=== PATIENT | female | born 1985 | race Caucasian/White ===

== ENCOUNTER 2018-09-17 19:59 | Emergency (ER) | payer OTHER ==
[2018-09-17] MEDS ORDERED: diPHENhydraMINE IV* 50 MG/ML 1 ml VIAL (BENADRYL) IV ONE (20:26)
[2018-09-17] MEDS ORDERED: Metoclopramide IV* 5 MG/ML 2 ML VIAL IV ONE (20:26)
[2018-09-17] MEDS ORDERED: Ketorolac INJ* 30 MG/ML 1 ML VIAL IV PUSH ONE (20:26)
--- NOTE | 2018-09-17 20:26 | UC ---
Headache HPI - HPI Summary HPI Summary: 33yo F with hx of only minor headaches in the past presents with R parietal headache that began this morning. Headache came on gradually and was sharp/ throbbing and intermittent. At times she felt her hair in the area was sensitive and has also experienced photophobia. Denies phonophobia, blurred vision, fever or neck pain. Denies any injury to area. No nausea/vomiting. + FHx of migraines in mother. LMP 1wk ago. - History Of Current Complaint Chief Complaint: UCHeadache Stated Complaint: HEADACHE Time Seen by Provider: 09/17/18 20:14 Hx Obtained From: Patient Hx Last Menstrual Period: 1 wk ago Pain Intensity: 6 - Allergies/Home Medications Allergies/Adverse Reactions: Allergies Allergy/AdvReac Type Severity Reaction Status Date / Time No Known Allergies Allergy Verified 09/17/18 20:18 Home Medications: Home Medications Ascorbic Acid TAB* [Vitamin C TAB*] 1 tab PO DAILY 09/17/18 [History Confirmed 09/17/18] Citalopram TAB* [Celexa TAB*] 1 tab PO DAILY 09/17/18 [History Confirmed ] Multivitamin [Multivitamins] 1 tab PO DAILY 09/17/18 [History Confirmed 09/17/18 ] PMH/Surg Hx/FS Hx/Imm Hx Previously Healthy: Yes - depression only - Surgical History Surgical History: Yes Surgery Procedure, Year, and Place: Appy. Left wrist - Family History Known Family History: Positive: Other - migraines in mother - Social History Alcohol Use: None Substance Use Type: None Smoking Status (MU): Never Smoked Tobacco Review of Systems Constitutional: Negative Skin: Negative Eyes: Negative ENT: Negative Gastrointestinal: Negative Motor: Negative Neurological: Headache All Other Systems Reviewed And Are Negative: Yes Physical Exam Triage Information Reviewed: Yes Appearance: Well-Appearing, No Pain Distress, Well-Nourished Vital Signs: Initial Vital Signs Temp 97.5 F 09/17/18 20:15 Pulse 73 09/17/18 20:15 Resp 18 09/17/18 20:15 BP 138/92 09/17/18 20:15 Pulse Ox 98 09/17/18 20:15 Vital Signs Reviewed: Yes Eyes: Positive: Conjunctiva Clear, Other: - Globes soft, TA non-tender ENT: Positive: Normal ENT inspection Neck: Positive: Supple, Nontender, No Lymphadenopathy. Negative: Nuchal Rigidity Respiratory: Positive: Lungs clear Cardiovascular: Positive: RRR Musculoskeletal: Positive: Strength Intact, ROM Intact Neurological: Positive: Alert, Other: - CN intact. Nl gait Skin Exam: Normal Re-Evaluation - Re-Evaluation First Eval Re-Evaluation Time: 21:00 Change: Improved Headache Course/Dx - Course Course Of Treatment: pt with gradual onset headache. 1 sided, throbbing with Fhx for migraines. Treated here with full relief. No high risk features. F/U with [facility]. - Differential Dx/Diagnosis Differential Diagnosis/HQI/PQRI: Meningitis, Migraine, Sinus Headache, Subarachnoid Hemorrhage, Tension Headache Provider Diagnoses: Acute migraine headache Discharge - Sign-Out/Discharge Documenting (check all that apply): Patient Departure All imaging exams completed and their final reports reviewed: No Studies - Discharge Plan Condition: Improved Disposition: HOME Prescriptions: Promethazine TAB* [Phenergan Tab*] 25 mg PO Q6H PRN #20 tab PRN Reason: headache/nausea Patient Education Materials: Acute Headache (ED) Referrals: [facility] [Outside] [facility] [Outside] Additional Instructions: Call tomorrow to follow up with the [facility]. A primary care doctor referral hotline has been given to you. If you get headaches, prescribed medication can help -- it can cause drowsiness so do not drive. If more sever, take ibuprofen, benadryl, water and caffeine. Return if worse, fevers, severe headache, new symptoms or other concerns. - Billing Disposition and Condition Condition: IMPROVED Disposition: Home - Attestation Statements Document Initiated by Jarad: No
[2018-09-17] MEDS ORDERED: NS 0.9% 1000 ML* 1,000 ML IV ONE (21:01)
[2018-09-17 21:10] VITALS: BP 130/80
== END 2018-09-17 21:20 | disposition home or self-care (01) ==
LOC: UCEAST 19:59
DX: G43.909 Migraine, unspecified, not intractable, without status migrainosus (principal)
CPT/HCPCS: 96360; 96374; 96375; 99202; G0463; J1200; J1885; J2765

== ENCOUNTER 2018-11-19 17:52 | Emergency (ER) | payer OTHER ==
[2018-11-19 18:01] VITALS: BP 129/83
--- NOTE | 2018-11-19 18:37 | UC ---
Lower Extremity/Ankle HPI - HPI Summary HPI Summary: The patient is a 33-year-old female that has had left heel pain for approximately 6 weeks. She denies any known trauma. Been no days that she's been completely pain-free. Some days or worsen others. Her symptoms seem to be worse first thing in the morning and when she returns from work. She has been taking 400 mg of ibuprofen twice a day. - History of Current Complaint Chief Complaint: UCLowerExtremity Stated Complaint: L FOOT PAIN Time Seen by Provider: 11/19/18 18:21 Hx Obtained From: Patient Hx Last Menstrual Period: 10/31/18 Onset/Duration: Gradual Onset, Lasting Weeks Severity Initially: Mild Severity Currently: Moderate Pain Intensity: 5 Pain Scale Used: 0-10 Numeric Aggravating Factor(s): Standing, Ambulation Alleviating Factor(s): Rest Able to Bear Weight: Yes Feet (Multiple View): 1 - tender - Allergies/Home Medications Allergies/Adverse Reactions: Allergies Allergy/AdvReac Type Severity Reaction Status Date / Time No Known Allergies Allergy Verified 11/19/18 18:01 Home Medications: Home Medications Escitalopram (NF) [Lexapro 20 mg (NF)] 20 mg PO DAILY 11/19/18 [History Confirmed 11/19/18] PMH/Surg Hx/FS Hx/Imm Hx Previously Healthy: Yes Psychological History: Anxiety - Surgical History Surgical History: Yes Surgery Procedure, Year, and Place: Appy. Left wrist - Family History Known Family History: Positive: Hypertension, Other - migraines in mother - Social History Alcohol Use: Occasionally Substance Use Type: None Smoking Status (MU): Never Smoked Tobacco Review of Systems All Other Systems Reviewed And Are Negative: Yes Constitutional: Positive: Negative Skin: Positive: Negative Eyes: Positive: Negative ENT: Positive: Negative Respiratory: Positive: Negative Cardiovascular: Positive: Negative Gastrointestinal: Positive: Negative Genitourinary: Positive: Negative Motor: Positive: Negative Neurovascular: Positive: Negative Musculoskeletal: Positive: Arthralgia Neurological: Positive: Negative Psychological: Positive: Negative Physical Exam Triage Information Reviewed: Yes Appearance: Well-Appearing, No Pain Distress, Well-Nourished Vital Signs: Initial Vital Signs Temp 98.0 F 11/19/18 17:56 Pulse 88 11/19/18 17:56 Resp 18 11/19/18 17:56 BP 129/83 11/19/18 17:56 Pulse Ox 100 11/19/18 17:56 Eyes: Positive: Conjunctiva Clear ENT: Positive: Hearing grossly normal. Negative: Nasal congestion, Nasal drainage, Trismus, Muffled voice, Hoarse voice Neck: Positive: Supple Respiratory: Positive: Lungs clear, Normal breath sounds, No respiratory distress, No accessory muscle use Cardiovascular: Positive: RRR, No Murmur Neurological: Positive: Alert Psychological Exam: Normal Skin Exam: Normal Diagnostics - Radiology No standard instances Radiology Interpretation Completed By: ED Physician Summary of Radiographic Findings: calcaneal spur Lower Extremity Course/Dx - Differential Dx/Diagnosis Provider Diagnosis: Plantar fasciitis of left foot, Heel spur Discharge - Sign-Out/Discharge Documenting (check all that apply): Patient Departure All imaging exams completed and their final reports reviewed: No - Discharge Plan Condition: Stable Disposition: HOME Patient Education Materials: Plantar Fasciitis (ED), Plantar Fasciitis Exercises (GEN) - Billing Disposition and Condition Condition: STABLE Disposition: Home
--- NOTE | 2018-11-20 13:25 | UC ---
- Progress Note Progress Note: Patient's x-ray from November 19, 2018 of her left patient heel read by the radiologist as small calcaneal spurs. The provider from the same date read the x-ray the same. Therefore there is no discrepancy Course/Dx - Diagnoses Provider Diagnoses: Plantar fasciitis of left foot, Heel spur Discharge - Sign-Out/Discharge Documenting (check all that apply): Patient Departure All imaging exams completed and their final reports reviewed: Yes - Discharge Plan Condition: Stable Disposition: HOME Prescriptions: Naproxen Sodium [Naproxen Sodium 500 MG TAB] 500 mg PO BID PRN #30 tab PRN Reason: Pain Patient Education Materials: Plantar Fasciitis Exercises (GEN), Plantar Fasciitis (ED) Referrals: No Primary Care Phys,NOPCP [Primary Care Provider] - Additional Instructions: I suggest you follow up with a special systems technician if not improved in 2 weeks - Billing Disposition and Condition Condition: STABLE Disposition: Home
== END 2018-11-19 19:15 | disposition home or self-care (01) ==
LOC: UCEAST 17:52
DX: M72.2 Plantar fascial fibromatosis (principal); M77.32 Calcaneal spur, left foot
CPT/HCPCS: 99212; G0463

== ENCOUNTER 2019-04-05 19:23 | Emergency (ER) | payer SELFPAY ==
--- OUTSIDE RECORDS SUMMARY | 2019-04-05 19:27 | XMS REPORT | Continuity of Care Document ---
:1985 External Reference #:[id number] Author Name Linda Jack MD Address [address] [place] [id number] Care Team Providers Name Role Phone Asha Bassett M.D. Care Team Information Food Sales Clerk Unavailable Asha Bassett M.D. Primary Care Physician Unavailable Payers Date Identification Numbers Payment Provider Subscriber Policy Number: [id number] Lifetime Benefits Dakotah Larios PayID: [facility] [address] [address] [place] [address] Advance Directives Description No Information Available Problems Description No Information Family History Description No Information Available Social History Type Date Description Comments Sex Unknown Tobacco Use Start: Unknown Patient has never smoked Smoking Status Reviewed: 03/31/19 Patient has never smoked Allergies, Adverse Reactions, Alerts Description No Known Drug Allergies Medications Active Medications SIG Qnty Indications Ordering Provider Date Venlafaxine HCL start with one in 60tabs F41.1 Asha Bassett, 02/18/2019 75mg Am for 1 week, M.D. Tablets then 2 tabs po in Am Clonazepam 1 by mouth every 8 30tabs F41.1 Asha Bassett, 02/18/2019 0.25mg hrs prn anxiety, M.D. Tablets Dispers use sparingly Metformin HCL 1 by mouth twice a 60tabs E28.2 Asha Bassett, 02/18/2019 500mg day, with food M.D. Tablets Naproxen 1 by mouth twice a Unknown 500mg day Tablets D 5000 1 by mouth every Unknown 5000Unit day Tablets Immunizations Description No Information Available Vital Signs Date Vital Result Comment 03/31/2019 1:23pm Height 62 inches 5'2" Weight 192.00 lb BP Systolic 127 mmHg BP Diastolic 85 mmHg Heart Rate 90 /min BMI (Body Mass Index) 35.1 kg/m2 Results Test Date Facility Test Result H/L Range Note Laboratory test 02/26/2019 [facility] Hep B Surface <pending> finding Antibody ([place]) Lab Results 02/18/2019 N2N/CCD Import Hemoglobin A1c 5.4 1 5-7 Xray 01/14/2019 [facility] [place] Radiology US, Trans-vaginal <pending> Xray 01/14/2019 [facility] [place] Radiology US, Liver ([id number]) <pending> Lab Results 12/17/2018 N2N/CCD Import Testosterone Total 30.91 ng/dL 8- 60 1 TSH (Thyroid Stim Horm) 1.54 mcIU/mL 0.34-5.6 2 FSH And LH 12/17/2018 N2N/CCD Import FSH (Follicle Stim Hormone) 3.2 mIU/ mL 3 LH (Lutenizing Hormone) 5.0 mIU/mL 4 Lab Results 12/17/2018 N2N/CCD Import Dhea Sulfate 94 g/dL 45-295 5 Estrone (E1) 104 pg/mL 6 Estradiol (E2) 143 pg/mL 7 Total Protein 6.7 g/dL 6.4-8.9 Albumin 4.3 g/dL 3.2-5.2 Globulin 2.4 g/dL 2-4 Albumin/Globulin Ratio 1.8 1 1-3 Total Bilirubin 0.40 mg/dL 0.2-1 Direct Bilirubin 0.00 mg/dL Low 0.03-0.18 Alkaline Phosphatase 71 U/L 34-104 Alt 22 U/L 7-52 Ast 23 U/L 13-39 Lab Results 12/17/2018 N2N/CCD Import Estrone (E1) 104 pg/mL 8 Estradiol (E2) 143 pg/mL 9 Total Protein 6.7 g/dL 6.4-8.9 Albumin 4.3 g/dL 3.2-5.2 Globulin 2.4 g/dL 2-4 Albumin/Globulin Ratio 1.8 1 1-3 Total Bilirubin 0.40 mg/dL 0.2-1 Direct Bilirubin 0.00 mg/dL Low 0.03-0.18 Alkaline Phosphatase 71 U/L 34-104 Alt 22 U/L 7-52 Ast 23 U/L 13-39 Lab Results 12/17/2018 N2N/CCD Import Total Protein 6.7 g/dL 6.4-8.9 Albumin 4.3 g/dL 3.2-5.2 Globulin 2.4 g/dL 2-4 Albumin/Globulin Ratio 1.8 1 1-3 Total Bilirubin 0.40 mg/dL 0.2-1 Direct Bilirubin 0.00 mg/dL Low 0.03-0.18 Alkaline Phosphatase 71 U/L 34-104 Alt 22 U/L 7-52 Ast 23 U/L 13-39 Lipid Profile (Trig/Chol/HDL) 12/17/2018 N2N/CCD Import Triglycerides 63 mg /dL 10 Cholesterol 187 mg/dL 11 HDL Cholesterol 55.1 mg/dL 12 LDL Cholesterol 119 mg/dL 13 Urine Culture And 12/17/2018 N2N/CCD Import Urine Culture See Result 14 Sensitivities Below 1 FASTING 10 HOUR LMP 12/29 Copy Result to: LEANNA LIZARRAGA ([id number]) 2 FASTING 10 HOUR LMP 12/29 Copy Result to: LEANNA LIZARRAGA ([id number]) 3 FASTING 10 HOUR LMP 12/ Copy Result to: LEANNA LIZARRAGA ([id number]) 4 FASTING 10 HOUR LMP 12/ Copy Result to: LEANNA LIZARRAGA ([id number]) 5 FASTING 10 HOUR LMP 12/29 Copy Result to: LEANNA LIZARRAGA ([id number]) 6 FASTING 10 HOUR LMP 12/29 Copy Result to: LEANNA LIZARRAGA ([id number]) 7 FASTING 10 HOUR LMP 12/29 Copy Result to: LEANNA LIZARRAGA ([id number]) 8 FASTING 10 HOUR LMP 12/29 Copy Result to: LEANNA LIZARRAGA ([id number]) 9 FASTING 10 HOUR LMP 12/29 Copy Result to: LEANNA LIZARRAGA ([id number]) 10 FASTING 10 HOUR LMP 12/29 Copy Result to: LEANNA LIZARRAGA ([id number]) 11 FASTING 10 HOUR LMP 12/29 Copy Result to: LEANNA LIZARRAGA ([id number]) 12 Low: <40 Desirable: 40-60 High: >60 13 Desirable: <100 Near Optimal: 100-129 Borderline High: 130-159 High: 160-189 Very High: >189 14 SEE RESULT BELOW Name: MANDI LARIOS Sha : [address]: Asha Bassett MD Acct: [id number] Unit: [id number] AGE: 33 Location: [facility] Re12/17/18 SEX: F Status: REG REF SPEC: [id number] ARABELLA: 12/17/18-101[address] [facility] [address]: Asha Bassett MD REQ: [id number] RECD: 12/17/18 STATUS: COMP _ SOURCE: URINE SPDESC: ORDERED: Urine Culture Procedure Result Reported Site Urine Culture Final 12/18/18- 1303 ML No Growth (<1,000 CFU/mL) * ML - Main Lab . END OF REPORT DEPARTMENT OF PATHOLOGY, [address] [place] [address] Javier Perez M.D. Director [facility] # [id number] Procedures Description No Information Available Encounters Description No Information Available Plan of Treatment 03/31/2019 - Linda Jack, K76.89 Other specified diseases of liverNew Xrays:MRI, Liver, W/ & W/O Contrast ([id number]), Ordered: 03/31/19R10.11 Right upper quadrant pain
[2019-04-05 19:43] VITALS: BP 135/86
--- NOTE | 2019-04-05 19:44 | UC ---
Laceration HPI - HPI Summary HPI Summary: 34 yo female presents with laceration to left hand. 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 She bandaged the area and came to . Her last tetanus was 2 years ago. - History Of Current Complaint Chief Complaint: UCLaceration Stated Complaint: FINGER LAC Time Seen by Provider: 04/05/19 19:44 Hx Obtained From: Patient Hx Last Menstrual Period: 10/31/18 Laceration Location: Hand Mechanism Of Injury: Sharp Trauma Onset/Duration: Sudden Onset Severity: Mild Pain Intensity: 3 Pain Scale Used: 0-10 Numeric - Allergies/Home Medications Allergies/Adverse Reactions: Allergies Allergy/AdvReac Type Severity Reaction Status Date / Time No Known Allergies Allergy Verified 04/05/19 19:43 Home Medications: Home Medications Metformin ER (NF) 500 mg PO BID 04/05/19 [History Confirmed 04/05/19] Venlafaxine CAP (NF) [Effexor CAP (NF)] 75 mg BID 04/05/19 [History Confirmed ] PMH/Surg Hx/FS Hx/Imm Hx Endocrine History: Diabetes Psychological History: Anxiety, Depression - Surgical History Surgical History: Yes Surgery Procedure, Year, and Place: Appy. Left wrist - Family History Known Family History: Positive: Hypertension, Other - migraines in mother - Social History Occupation: Employed Full-time Lives: With Family Alcohol Use: Weekly Substance Use Type: None Smoking Status (MU): Never Smoked Tobacco Review of Systems All Other Systems Reviewed And Are Negative: Yes Constitutional: Positive: Negative Skin: Positive: Other - Left hand laceration Respiratory: Positive: Negative Cardiovascular: Positive: Negative Neurovascular: Positive: Negative Neurological: Positive: Negative Psychological: Positive: Negative Physical Exam - Summary Physical Exam Summary: GENERAL: NAD. WDWN. No pain distress. SKIN: LEFT hand: webspace between 1st and 2nd digit with 7mm linear laceration. Clean wound. CHEST: No accessory muscle use. Breathing comfortably and in no distress. CV: Pulses intact. Cap refill <2seconds NEURO: Alert. PSYCH: Age appropriate behavior. Triage Information Reviewed: Yes Vital Signs: Initial Vital Signs Temp 98.1 F 04/05/19 19:39 Pulse 89 04/05/19 19:39 Resp 18 04/05/19 19:39 BP 135/86 04/05/19 19:39 Pulse Ox 99 04/05/19 19:39 Vital Signs Reviewed: Yes Laceration Repair - Laceration Repair 1 Laceration Size After Repair: Length (cm) - 0.7 Modified For Repair: No Cleansing Completed Via Routine Prep: Yes Closure Material: Skin Adhesive, SteriStrips Closure Method: Single Layer Suture Of: Skin Laceration Course/Dx - Course/Dx Course Of Treatment: Wound cleansed with NS. Laceration brought into excellent approximation with manual manipulation. Dermabond and steri-strip applied. Bandaged with a band- aid. - Diagnosis Provider Diagnosis: Laceration of left hand Discharge - Sign-Out/Discharge Documenting (check all that apply): Patient Departure All imaging exams completed and their final reports reviewed: No Studies - Discharge Plan Condition: Stable Disposition: HOME Patient Education Materials: Skin Adhesive Care (ED) Referrals: Asha Bassett MD [Primary Care Provider] - Additional Instructions: If you develop a fever, shortness of breath, chest pain, new or worsening symptoms - please call your PCP or go to the ED immediately. 1) Keep the area covered with a band-aid until well healed (likely 3-5 days) 2) The glue with flake off naturally in 3-5 days and the steri strips may come off in 3-5 days as well. - Billing Disposition and Condition Condition: STABLE Disposition: Home - Attestation Statements Provider Attestation: I was available for consult. This patient was seen by the CHELSEA. The patient was not presented to , seen by or examined by ga -Patrizia Wilson MD
[2019-04-05] MEDS ORDERED: Benzoin Compound STICK ONE (19:52)
[2019-04-05] MEDS ORDERED: Benzoin Compound STICK TOPICAL ONE (19:55)
== END 2019-04-05 20:09 | disposition home or self-care (01) ==
LOC: UCEAST 19:23
DX: S61.412A Laceration without foreign body of left hand, initial encounter (principal); W26.8XXA Contact with other sharp object(s), not elsewhere classified, initial encounter; Y92.9 Unspecified place or not applicable; E11.9 Type 2 diabetes mellitus without complications; Z79.84 Long term (current) use of oral hypoglycemic drugs; F41.9 Anxiety disorder, unspecified; F32.9 Major depressive disorder, single episode, unspecified
CPT/HCPCS: 12001; 99211; G0463